=== PATIENT | male | born 1985 | race Caucasian/White ===

== ENCOUNTER 2017-12-24 13:22 | Emergency (ER) | payer BC ==
[2017-12-24 13:33] VITALS: BP 132/72; PULSE 65; RESP 18; TEMP 97.9; O2SAT 97
--- NOTE | 2017-12-24 13:53 | ED PDOC ---
HPI: Back Time Seen by Provider: 12/24/17 13:37 Chief Complaint (Nursing): Back Pain Chief Complaint (Provider): Left Upper Back Pain History Per: Patient History/Exam Limitations: no limitations Onset/Duration Of Symptoms: Days (x3) Current Symptoms Are (Timing): Still Present Quality Of Discomfort: "Pain" Additional Complaint(s): 32 y/o male presents to the ED with left upper back pain. Patient states he was working out 3 days ago doing pull ups and has had pain since then. He took Aspirin yesterday for the pain which did help somewhat. Pain is worse with deep inspiration and with movement of torso and left arm. PMD: none provided Past Medical History Reviewed: Historical Data, Nursing Documentation, Vital Signs Vital Signs: Last Vital Signs Temp 97.9 F 12/24/17 13:30 Pulse 65 12/24/17 13:30 Resp 18 12/24/17 13:30 BP 132/72 12/24/17 13:30 Pulse Ox 97 12/24/17 13:30 - Medical History PMH: No Chronic Diseases - Surgical History Other surgeries: nasal surgery - Family History Family History: States: No Known Family Hx - Living Arrangements Living Arrangements: With Friends/Others - Social History Current smoker - smoking cessation education provided: No Ex-Smoker (has not smoked in the last 12 months): No Alcohol: None Drugs: Denies - Home Medications Home Medications: Ambulatory Orders Medication Instructions Recorded Cyclobenzaprine [Cyclobenzaprine 10 mg PO TID PRN #20 tab 12/24/17 HCl] Naproxen [Naprosyn] 500 mg PO BID #20 tab 12/24/17 - Allergies Allergies/Adverse Reactions: Allergies Allergy/AdvReac Type Severity Reaction Status Date / Time No Known Allergies Allergy Verified 12/24/17 13:29 Review of Systems ROS Statement: Except As Marked, All Systems Reviewed And Found Negative Constitutional: Negative for: Fever, Chills Cardiovascular: Negative for: Chest Pain Respiratory: Positive for: Other (pain with deep inspiration). Negative for: Shortness of Breath Gastrointestinal: Negative for: Nausea, Vomiting Musculoskeletal: Positive for: Shoulder Pain (left), Back Pain (left upper area) Neurological: Negative for: Headache, Dizziness Physical Exam - Reviewed Nursing Documentation Reviewed: Yes Vital Signs Reviewed: Yes - Physical Exam Appears: Positive for: Non-toxic, No Acute Distress Head Exam: Positive for: ATRAUMATIC, NORMAL INSPECTION, NORMOCEPHALIC Skin: Positive for: Normal Color. Negative for: Rash Eye Exam: Positive for: EOMI, Normal appearance, PERRL Neck: Positive for: Pain On Movement Of Neck. Negative for: Normal (tender to left trapezius muscle, palpable muscle spasm) Cardiovascular/Chest: Positive for: Regular Rate, Rhythm, Chest Non Tender Respiratory: Positive for: Normal Breath Sounds. Negative for: Respiratory Distress Gastrointestinal/Abdominal: Positive for: Soft. Negative for: Tenderness Extremity: Positive for: Normal ROM (of left shoulder with pain, strong left hand [employer]), Tenderness (diffused to the left anterior shoulder) Neurologic/Psych: Positive for: Alert, Oriented (x3) - ECG Interpretation Of ECG: Sinus bradycardia at 53 bpm, no acute changes, reviewed by VIZCARRA ED attending O2 Sat by Pulse Oximetry: 97 (RA) Pulse Ox Interpretation: Normal - Other Rad CXR X-Ray: Interpreted by Me, Viewed By Me X-Ray Interpretation: no acute finding L shoulder x-ray X-Ray: Interpreted by Me, Viewed By Me X-Ray Interpretation: no acute finding Medical Decision Making Medical Decision Making: Time: 13:30 Impression: 32 y/o with upper back pain Initial Plan: * EKG * Chest X-Ray * Toradol 30 mg IM * Left Shoulder X-Ray Patient reports improvement of pain after medications given in ED. He has improved range of motion to left shoulder. Prescription for Naprosyn and Flexeril given, patient was referred to orthopedist rn coronary care unit for follow-up. Scribe Attestation: Documented by Ezra Gutiérrez acting as a scribe Keisha Cee PA-C. MD Scribe Attestation: All medical record entries made by the Scribe were at my direction and personally dictated by me. I have reviewed the chart and agree that the record accurately reflects my personal performance of the history, physical exam, medical decision making, and the department course for this patient. I have also personally directed, reviewed, and agree with the discharge instructions and disposition. Disposition - Clinical Impression Clinical Impression: Upper back strain, Shoulder strain - Patient ED Disposition Is Patient to be Admitted: No Counseled Patient/Family Regarding: Studies Performed, Diagnosis, Need For Followup, Rx Given - Disposition Referrals: Angelina Holguin MD [Staff Provider] - Disposition: Routine/Home Disposition Time: 14:42 Condition: IMPROVED Additional Instructions: Rest affected area as much as possible, avoid heavy lifting. Come into simple stretching exercises to repair the muscle. Take prescription meds as directed as needed for pain. Follow-up with primary doctor or orthopedist for any persistent symptoms. Prescriptions: Cyclobenzaprine [Cyclobenzaprine HCl] 10 mg PO TID PRN #20 tab PRN Reason: Muscle Spasm Naproxen [Naprosyn] 500 mg PO BID #20 tab Instructions: Muscle Strain, Upper Back Pain, Neck Stretches, Upper Extremity Exercises Seated, General Forms: [facility] (Indonesian)
--- NOTE | 2017-12-24 14:14 | RAD ---
PROCEDURE: Radiographs of the Left Shoulder HISTORY: pain COMPARISON: No prior. FINDINGS: BONES: Bone alignment and mineralization are normal. There is no acute displaced fracture or bone destruction. JOINTS: Normal. Glenohumeral and acromioclavicular joints preserved. SOFT TISSUES: Normal. OTHER FINDINGS: None. IMPRESSION: No acute fracture or dislocation.
--- NOTE | 2017-12-25 08:42 | CARD ---
APPROVED REPORT EKG Measurement Heart [id number] <Conclusion> Sinus bradycardia Otherwise normal ECG
== END 2017-12-24 14:57 | disposition home or self-care (01) ==
LOC: H.ER 13:22
DX: M54.9 Dorsalgia, unspecified (principal); S46.912A Strain of unspecified muscle, fascia and tendon at shoulder and upper arm level, left arm, initial encounter; X50.9XXA Other and unspecified overexertion or strenuous movements or postures, initial encounter; Y92.89 Other specified places as the place of occurrence of the external cause
CPT/HCPCS: 71046; 73030; 93005; 96372; 99282; J1885